=== PATIENT | female | born 1990 | race African-American/Black ===

== ENCOUNTER 2016-07-18 07:59 | Emergency (ER) | payer SELFPAY ==
[~2016-07-18] VITALS: Ht 170.2 cm; Wt 112.0 kg
[~2016-07-18 07:59] MED LIST: HYDR-971 PO; SULF1TAB24 PO
[2016-07-18 08:01] VITALS: BP 134/71
[2016-07-18] MEDS ORDERED: AMOX875T PO (08:35)
[2016-07-18] MEDS ORDERED: TOBR5DRO6 OD (08:35)
--- NOTE | 2016-07-18 08:35 | PHYS DOC ---
Past Medical History Past Medical History: No Pertinent History Past Surgical History: Tonsillectomy Alcohol Use: None Drug Use: None Adult General Chief Complaint Chief Complaint: EYE PROBLEMS HPI HPI Patient is a 26 year old female who presents with pinkeye to bilateral eyes for 4 days as well as sore throat since yesterday. Patient denies any fever coughing or congestion. Her voice is hoarse. Review of Systems Review of Systems Constitutional: See history of present illness Eyes: Pinkeye to bilateral eyes HENT: sore throat [] Respiratory: Denies cough or shortness of breath [] Cardiovascular: No additional information not addressed in HPI [] GI: Denies abdominal pain, nausea, vomiting, bloody stools or diarrhea [] : Denies dysuria or hematuria [] Musculoskeletal: Denies back pain or joint pain [] Integument: Denies rash or skin lesions [] Neurologic: Denies headache, focal weakness or sensory changes [] Endocrine: Denies polyuria or polydipsia [] Allergies Allergies Allergies Coded Allergies Type Severity Reaction Last Updated Verified No Known Drug Allergies 06/18/15 No Physical Exam Physical Exam Constitutional: Well developed, well nourished, no acute distress, non-toxic appearance. [] HENT: Normocephalic, atraumatic, bilateral external ears normal, oropharynx moist, no oral exudates, nose normal. [] Posterior with mild petechia, no exudate. Eyes: PERRLA, EOMI, bilateral conjunctiva mildly injected left worse than right , left eyelid has small amount of dry yellow drainage Neck: Normal range of motion, no tenderness, supple, no stridor. [] Cardiovascular:Heart rate regular rhythm, no murmur [] Lungs & Thorax: Bilateral breath sounds clear to auscultation [] Abdomen: Bowel sounds normal, soft, no tenderness, no masses, no pulsatile masses. [] Skin: Warm, dry, no erythema, no rash. [] Back: No tenderness, no CVA tenderness. [] Extremities: No tenderness, no cyanosis, no clubbing, ROM intact, no edema. [] Neurologic: Alert and oriented X 3, normal motor function, normal sensory function, no focal deficits noted. [] Psychologic: Affect normal, judgement normal, mood normal. [] Current Patient Data Vital Signs Vital Signs Date Time Temp Pulse Resp B/P Pulse Ox O2 Delivery O2 Flow Rate FiO2 2/12/17 08:01 98.6 76 18 97 Room Air 98.6 EKG EKG [] Radiology/Procedures Radiology/Procedures [] Course & Med Decision Making Course & Med Decision Making Pertinent Labs and Imaging studies reviewed. (See chart for details) Patient is in the ED with pink eye and sore throat. Positive rapid strep. Discharged with Tobramycin eyedrops and amoxicillin. Importance of good hand hygiene emphasized. Tylenol /Motrin for pain or fever. Saltwater gargles also recommended for sore throat. Follow-up with PCP in 1-2 weeks. Dragon Disclaimer Dragon Disclaimer This electronic medical record was generated, in whole or in part, using a voice recognition dictation system. Departure Departure Impression: Primary Impression: Acute bacterial conjunctivitis of both eyes Additional Impression: Acute streptococcal pharyngitis Disposition: HOME, SELF-CARE Condition: STABLE Referrals: NO PCP (PCP) Follow-up with your own doctor in one week Patient Instructions: Bacterial Conjunctivitis, [id number]-sc-[id number], Strep Throat Additional Instructions: You were seen for bacterial conjunctivitis both eyes and strep infection. Keep your hands very clean. You can wash your eyes with none irritant soap twice a day and as needed. Ensure you complete your antibiotics. Follow-up with your own primary care doctor in 1-2 weeks. Return to the emergency room if symptoms continue. Scripts Amoxicillin 875 Mg Tablet1 Tab PO BID #20 TAB Prov:MARYELLEN DE LA ROSA APRN 07/18/16 Tobramycin 5 Ml Drops1 Drop OD Q4HRS W/A #5 ML for seven days Prov:MARYELLEN DE LA ROSA APRN 07/18/16 Problem Qualifiers MARYELLEN DE LA ROSA APRN Jul 18, 2016 08:35
== END 2016-07-18 08:49 | disposition home or self-care (01) ==
LOC: ER 07:59
DX: J02.0 Streptococcal pharyngitis (principal); H10.89 Other conjunctivitis; B99.9 Unspecified infectious disease; Z90.89 Acquired absence of other organs
CPT/HCPCS: 99283

== ENCOUNTER 2019-04-10 07:35 | Day surgery (SDC) | payer OTHER ==
[~2019-04-10] VITALS: Ht 170.2 cm; Wt 105.5 kg
[~2019-04-10 07:35] MED LIST changes: +AMOX875T PO; +BUPIVACAINE-EPI 0.5%-1:200000 MPF 30 ML VIAL. INJ ONE; +HEPARIN 1,000 UNIT in IV NORMAL SALINE 1,000 ML for SURG PERIOP IRR ONE; +HYDR-3164 PO; -HYDR-971 PO; +HYDROmorphone 2 MG/ML VIAL IV PRN; +IV RINGERS,LACTATED 1000ML 1,000 ML IV SCH; +LIDOCAINE 1% PF 2 ML VIAL. ID PRN; +MORPHINE SULFATE 2 MG/ML VIAL. IV PRN; +ONDANSETRON PF 4 MG/2 ML VIAL. IV PRN; +PROCHLORPERAZINE 10 MG/2 ML VIAL. IV PRN; +TOBR5DRO6 OD; +TRAM50TA PO; +fentaNYL PF VIAL 100 MCG/2 ML VIAL IV PRN
[2019-04-10] MEDS ORDERED: TRAM50TA PO (08:16)
[2019-04-10] MEDS ORDERED: BISACODYL 10 MG SUPP.RECT. ONE (08:17)
[2019-04-10] MEDS ORDERED: IOHEXOL 300 MG/ML 50 ML VIAL. ONE (08:17)
[2019-04-10] MEDS ORDERED: SURGICEL HEMOSTAT 4X8 EACH. ONE (08:17)
[2019-04-10] MEDS ORDERED: NEOSTIGMINE METHYLSULFATE 5 MG/5 ML SYRINGE. ONE (08:30)
[2019-04-10] MEDS ORDERED: fentaNYL PF VIAL 100 MCG/2 ML VIAL ONE ×2 (08:30→11:11)
[2019-04-10] MEDS ORDERED: ROCURONIUM 50 MG/5 ML VIAL. ONE (08:30)
[2019-04-10] MEDS ORDERED: SEVOFLURANE 61 TO 120 MINUTES. IH ONE (08:30)
[2019-04-10] MEDS ORDERED: ONDANSETRON PF 4 MG/2 ML VIAL. ONE (08:31)
[2019-04-10] MEDS ORDERED: LIDOCAINE 2% PF 5 ML VIAL. ONE (08:31)
[2019-04-10] MEDS ORDERED: MIDAZOLAM HCL/PF 2 MG/2 ML VIAL. ONE (08:31)
[2019-04-10] MEDS ORDERED: DEXAMETHASONE SOD PHOS 4 MG/ML VIAL ONE (08:31)
[2019-04-10] MEDS ORDERED: KETOROLAC 30 MG/ML VIAL. ONE (08:31)
[2019-04-10] MEDS ORDERED: PROPOFOL 20 ML IV ONE (08:31)
[2019-04-10] MEDS ORDERED: GLYCOPYRROLATE 1 MG/5 ML VIAL. ONE (08:31)
[2019-04-10] MEDS ORDERED: ceFAZolin 2GM PREMIX 2 GM/50 ML BAG IV ONE (09:00)
--- NOTE | 2019-04-10 09:14 | PDOC ---
SURGICAL PROGRESS NOTE Subjective Pre-Op Note 29 yo F with calculous cholecystitis TO OR for laparoscopic versus open cholecystectomy with cholangiogram R/R/B/A d/w pt and pt's family. Risks, including, but not limited to: bleeding, infection, damage to surrounding structures, risk of anesthesia, risk of open, risk of . They appear to understand, their questions are answered and they elect to proceed. Office note H&P reviewed and unchanged. Vital Signs Vital Signs Date Time Temp Pulse Resp B/P (MAP) Pulse Ox O2 Delivery O2 Flow Rate FiO2 04/10/19 08:13 97.8 75 18 120/60 98 Room Air 97.8 Labs Laboratory Tests Test 04/10/19 07:53 Bedside Urine HCG, Qualitative Hcg negative (Negative) Laboratory Tests Test 04/10/19 07:53 Bedside Urine HCG, Qualitative Hcg negative (Negative) RENETTA AGUIRRE MD Apr 10, 2019 09:14
--- NOTE | 2019-04-10 09:26 | NUR ---
0.5cc's of icg given iv from [place], [facility] notified prior to injection
[2019-04-10] MEDS ORDERED: INDOCYANINE GREEN IVP ONE (09:27)
[2019-04-10] MEDS ORDERED: TOTAL VOLUME IVP ONE (09:27)
[2019-04-10] MEDS ORDERED: PHENYLEPHRINE in 0.9% NACL PF 1 MG/10 ML SYRINGE. IV ONE (09:48)
--- NOTE | 2019-04-10 10:32 | RAD ---
EXAM: INTRAOPERATIVE CHOLANGIOGRAM. HISTORY: Intraoperative cholangiogram with cholecystectomy. COMPARISON: None. FINDINGS: One fluoroscopic image is obtained intraoperatively during injection of the cystic duct remnant after cholecystectomy. There are no filling defects to suggest retained stones. The common duct is not dilated. Fluoroscopy time 16 seconds. IMPRESSION: 1. No evidence of retained stones. Electronically signed by: Layo Nair MD (04/10/2019 10:29 AM) [facility]
[2019-04-10] MEDS ORDERED: IV NORMAL SALINE 1000ML BAG 1,000 ML IV SCH (10:40)
[2019-04-10] MEDS ORDERED: NALOXONE 0.4 MG/ML VIAL. IV PRN (10:45)
[2019-04-10] MEDS ORDERED: ONDANSETRON PF 4 MG/2 ML VIAL. IV PRN (10:45)
[2019-04-10] MEDS ORDERED: HYDROcodone/APAP 5/325MG 1 TAB TABLET PO PRN (10:45)
[2019-04-10] MEDS ORDERED: DEXTROSE 50% 25 GM / 50ML DISP.SYRIN. IV PRN (10:45)
[2019-04-10] MEDS ORDERED: 0.9 % SODIUM CHLORIDE 10 ML DISP.SYRIN. IV PRN (10:45)
--- NOTE | 2019-04-10 10:54 | PDOC4 ---
OPERATIVE NOTE Date: Date: Apr 10, 2019 Pre-Op Diagnosis: Calculous cholecystitis Post-Op Diagnosis: same Procedure Performed: laparoscopic cholecystectomy with cholangiogram Surgeon: Pk Aguirre Anesthesia Type: GETA plus local Blood Loss: 50 Specimans Obtained: gallbladder Findings: chronic adhesions to gallbladder, morbid obesity, large gallstone, normal cholangiogram Complications: none Operative Note: After obtaining informed consent, patient was taken to OR, induced under GETA and prepped in the usual fashion. 5 mm port placed umbilical and RUQ, 12 port placed epigastric, all under laparoscopic guidance. Abdominal cavity was explored with above findings. Gallbladder adhesions taken down sharply. ICG was used to aid anatomy identification. Gallbladder taken down in dome down fashion. Cystic artery ligated with clips. Cholangiogram obtained via cystic duct, which was normal. Cystic duct ligated with clips and hemolok. Gallbladder resected, placed in bag, delivered and sent to pathology for evaluation. Copious irrigation. No evidence of bleeding or other pathology. Ports removed without bleeding. Fascia repaired with 0 vicryl. Skin repaired with 4 0 monocryl. Dressing placed. Patient tolerated procedure well and sent to PACU in stable condition. All counts correct. Wound class is 2. RENETTA AGUIRRE MD Apr 10, 2019 10:54
[2019-04-10] MEDS ORDERED: HYDR-3164 PO (11:24)
[2019-04-10] MEDS ORDERED: DOCU-109 PO (11:25)
[2019-04-10] MEDS ORDERED: HYDROcodone/APAP 5/325MG 1 TAB TABLET PO ONE (11:30)
[2019-04-10 11:50] VITALS: BP 131/82
[2019-04-10] MEDS ORDERED: DOCUSATE SODIUM 100 MG CAPSULE. PO SCH (21:00)
--- NOTE | 2019-04-11 23:06 | PATHOLOGY ---
[facility] Accession Number: [id number] . 01 Material submitted: . gallbladder - GALLBLADDER AND CONTENTS . 01 Clinical history: . Gallstones. . 02 Diagnosis: "Gallbladder and contents", cholecystectomy: - Mildly acute on chronic cholecystitis. - Cholelithiasis. (CLW/db; 04/11/2019) LBQ 04/11/2019 1616 Local . 02 Electronically signed: . Richa Benavides MD, Pathologist NPI- [id number] . 01 Gross description: . Received in formalin labeled "Bri, Cassia, gallbladder and contents" is an intact cholecystectomy specimen measuring 6.5 x 3.7 x 2.3 cm. The serosa is pink-king and smooth and the specimen is opened to reveal green-red focally hemorrhagic mucosa without polyps or masses. The average wall thickness is 0.3 cm. One green ovoid calculus is present measuring 2.6 cm in greatest dimension. Basketball Assembler sections of the fundus and body and the cystic duct margin are submitted in A1. ([facility] [place]; 04/10/2019) SY/[facility] 04/10/2019 1720 Local . 02 Pathologist provided ICD-10: K80.12 . 02 CPT . 187205 Specimen Comment: A courtesy copy of this report has been sent to [phone] Specimen Comment: Report sent to Performed at: 01 [facility] [address] [facility] [address], [place] [id number] MD Anirudh Stewart MD Phone: [phone] Performed at: 02 [facility] [address] [place], [place] [id number] MD Benedicto Rivas MD Phone: [phone]
== END 2019-04-10 12:17 | disposition home or self-care (01) ==
LOC: SURG 07:35
PROVIDERS: ATTEND Surgery
DX: K80.12 Calculus of gallbladder with acute and chronic cholecystitis without obstruction (principal); F17.210 Nicotine dependence, cigarettes, uncomplicated; D64.9 Anemia, unspecified; E66.01 Morbid (severe) obesity due to excess calories; Z68.36 Body mass index [BMI] 36.0-36.9, adult; Z72.89 Other problems related to lifestyle
CPT/HCPCS: 47563; 74300; 81025; 88304; A7015; J0696; J1100; J1644; J1885; J2001; J2250; J2370; J2405; J2704; J2710; J3010; J3490; J7030; J7120; Q9967

== ENCOUNTER 2019-12-21 11:16 | Emergency (ER) | payer OTHER ==
[~2019-12-21] VITALS: Ht 170.2 cm; Wt 113.0 kg
[~2019-12-21 11:16] MED LIST changes: -BUPIVACAINE-EPI 0.5%-1:200000 MPF 30 ML VIAL. INJ ONE; +DOCU-109 PO; -HEPARIN 1,000 UNIT in IV NORMAL SALINE 1,000 ML for SURG PERIOP IRR ONE; -HYDROmorphone 2 MG/ML VIAL IV PRN; -IV RINGERS,LACTATED 1000ML 1,000 ML IV SCH; -LIDOCAINE 1% PF 2 ML VIAL. ID PRN; -MORPHINE SULFATE 2 MG/ML VIAL. IV PRN; -ONDANSETRON PF 4 MG/2 ML VIAL. IV PRN; -PROCHLORPERAZINE 10 MG/2 ML VIAL. IV PRN; -fentaNYL PF VIAL 100 MCG/2 ML VIAL IV PRN
[2019-12-21 11:34] VITALS: BP 140/84
[2019-12-21] MEDS ORDERED: AZIT250T6 PO (11:49)
[2019-12-21] MEDS ORDERED: METH4TAB2 PO (11:49)
[2019-12-21] MEDS ORDERED: CETI10TA24 PO (11:49)
[2019-12-21] MEDS ORDERED: HYDR-3164 PO (11:49)
--- NOTE | 2019-12-21 11:50 | PHYS DOC ---
Past Medical History Past Medical History: No Pertinent History Past Surgical History: Tonsillectomy Smoking Status: Current Every Day Smoker Alcohol Use: Occasionally Drug Use: None General Adult EDM: Chief Complaint: EARACHE/EAR PAIN HPI: HPI: Patient is a 29 year old Female who presents with 3 days of a runny congested nose and left ear pain. Patient also complains of a dry cough. She does have a history of smoker but denies any other history and takes no medications. She has not taken any medications for her symptoms. Denies anything making it worse or better. She rates her pain a 10 out of 10 and states left ear pain radiates into the left jaw. She states is a throbbing pain. States her hearing is muffled in the left ear. Patient does work at [employer]. She denies fever, nausea, vomiting, diarrhea, abdominal pain, chest pain, shortness of air, dizziness, headache, throat pain, dizziness, vision changes, numbness or tingling. Review of Systems: Review of Systems: Constitutional: Denies fever or chills. [] Eyes: Denies change in visual acuity. [] HENT: Rhinorrhea nasal congestion or denies sore throat. Left ear pain [] Respiratory: Dry cough or denies shortness of breath. [] Cardiovascular: Denies chest pain or edema. [] GI: Denies abdominal pain, nausea, vomiting, bloody stools or diarrhea. [] : Denies dysuria. [] Musculoskeletal: Denies back pain or joint pain. [] Integument: Denies rash. [] Neurologic: Denies headache, focal weakness or sensory changes. [] Endocrine: Denies polyuria or polydipsia. [] Lymphatic: Denies swollen glands. [] Psychiatric: Denies depression or anxiety. [] Heart Score: Risk Factors: Risk Factors: DM, Current or recent (<one month) smoker, HTN, HLP, family history of CAD, obesity. Risk Scores: Score 0 - 3: 2.5% MACE over next 6 weeks - Discharge Home Score 4 - 6: 20.3% MACE over next 6 weeks - Admit for Clinical Observation Score 7 - 10: 72.7% MACE over next 6 weeks - Early Invasive Strategies Current Medications: Current Medications Medications (Trade) Dose Ordered Sig/Abi Start Time Stop Time Status Last Admin Dose Admin Acetaminophen/ Hydrocodone Bitart (Lortab 5/325) 1 tab 1X ONCE 12/21/19 12:15 12/21/19 12:16 Allergies: Allergies: Allergies Coded Allergies Type Severity Reaction Last Updated Verified No Known Drug Allergies 06/18/15 No Physical Exam: PE: Constitutional: Well developed, well nourished, no acute distress, non-toxic appearance. [] HENT: Normocephalic, atraumatic, bilateral external ears normal, oropharynx moist, no oral exudates, nose normal. Left ear tympanic and ear canal are reddened and swollen. Tender with examination. [] Eyes: PERRLA, EOMI, conjunctiva normal, no discharge. [] Neck: Normal range of motion, no tenderness, supple, no stridor. [] Cardiovascular:Heart rate regular rhythm, no murmur [] Lungs & Thorax: Bilateral breath sounds clear to auscultation [] Abdomen: Bowel sounds normal, soft, no tenderness, no masses, no pulsatile masses. [] Skin: Warm, dry, no erythema, no rash. [] Back: No tenderness, no CVA tenderness. [] Extremities: No tenderness, no cyanosis, no clubbing, ROM intact, no edema. [] Neurologic: Alert and oriented X 3, normal motor function, normal sensory function, no focal deficits noted. [] Psychologic: Affect normal, judgement normal, mood normal. [] Current Patient Data: Vital Signs: Vital Signs Date Time Temp Pulse Resp B/P (MAP) Pulse Ox O2 Delivery O2 Flow Rate FiO2 12/21/19 11:34 98.4 98 18 140/84 (102) 99 Room Air 98.4 EKG: EKG: [] Radiology/Procedures: Radiology/Procedures: [] Impression: [facility] [address] [place], [place] [id number] IMAGING REPORT Signed PATIENT: ESTHER ARGUELLOCOUNT: [id number] : 1990 LOCATION: ER AGE: 29 SEX: F EXAM STATUS: REG ER ORD. PHYSICIAN: BRONSON MACIAS APRN REASON: cough, sore throat x3 days PROCEDURE: PORTABLE CHEST 1V PORTABLE CHEST 1V History: Reason: cough, sore throat x3 days / Spl. Instructions: / History: Comparison: None. Findings: No consolidation or pleural effusion. Normal heart size. No pneumothorax. Impression: 1. No acute cardiopulmonary process. Electronically signed by: Bill Schwarz DO (12/21/2019 12:23 PM) [id number] DICTATED and SIGNED BY: BILL SCHWARZ DO DATE: 12/21/19 1223 Course & Med Decision Making: Course & Med Decision Making Pertinent Labs and Imaging studies reviewed. (See chart for details) COVID-19 CRITERIA: The patient was evaluated during the global COVID-19 pandemic, and that diagnosis was suspected/considered upon their initial presentation. Their evaluation, treatment and testing was consistent with current guidelines for patients who present with complaints or symptoms that may be related to COVID-19. Left ear canal is reddened and tender with examination. Left ear canal swollen. Left eardrum is reddened. Tympanic is intact. Lungs are clear to auscultation all lobes. Vital signs within normal limits. Afebrile. 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 She is educated that it could take 4 working days for her to get a results. Alert and oriented. Ambulatory with a steady gait. Skin pink warm and dry. Throat is pink without any swelling or exudates. [] Rulaon Disclaimer: Amina Disclaimer: This electronic medical record was generated, in whole or in part, using a voice recognition dictation system. COVID-19 Patient Risks: Age 65 or older: No Sign of co-morbidity: Yes Exp to person + for COVID: No Exp to PUI: No Travel from affected area: No Lower respiratory symptoms: Yes Fever: No Other: No Comments: runny nose Departure Departure Impression: Primary Impression: Person under investigation for COVID-19 Additional Impressions: Cough Rhinorrhea Otitis media Qualified Codes: H66.90 - Otitis media, unspecified, unspecified ear Disposition: 01 HOME, SELF-CARE Condition: STABLE Referrals: NO PCP (PCP) Patient Instructions: Cough, Adult, Otitis Media, Adult Additional Instructions: You have been tested for or diagnosed with COVID-19. It is an infection caused by a new type of coronavirus. COVID-19 will cause cold-like or mild flu symptoms in most. It can cause more severe symptoms like problems breathing in some. There is no treatment for COVID-19. The body will clear the infection over time. Self-care will help to ease discomfort. Steps to Take: Self-Care Rest as needed. Healthy habits may help you feel better. Steps include: Choose healthy foods including fruits and vegetables. Drink water throughout the day. Get plenty of sleep each night. If you smoke, try to quit. It may ease breathing. Avoid alcohol. Keep Others Healthy The virus can spread to others. Droplets are released every time you sneeze or cough. The droplets can get into the mouth, nose, or eyes of people near you and lead to infection. To lower the chances of spreading COVID-19 to others: Stay at home until your doctor has said it is safe to leave. If you tested positive this will mean staying isolated until both of the following are true: At least 7 days have passed since the start of illness. You are free of fever for at least 72 hours without the use of medicine. During this time: - Avoid public areas, events, or transportation. Do not return to work or school until your doctor has said it is safe to do so. - Call ahead if you need to go to a medical center. Let them know you may have COVID-19. It will help them guide you where to go. They may also ask you to wear a facemask when you come to the office. - If you call for emergency medical services, let them know you may have COVID- 19. While at home: - Try to avoid close contact with others. Stay about 6 feet away. - If possible, spend most of your time in a separate room from others. - Use a face mask if you will be in close contact with others such as sharing a room or vehicle. - Have someone wipe down common surfaces in the home. Use household spar cap beveler every day on areas like doorknobs, counters, or sinks. - Cough or sneeze into a tissue. Throw the tissue away right after use. If a tissue is not available, cough or sneeze into your elbow. - Wash your hands often. Wash them after sneezing or coughing. Use soap and water and wash for at least 20 seconds. Alcohol based hand reed cleaner can be used if soap and water is not available. - Do not prepare food for others. Avoid sharing personal items like forks, spoons, or toothbrushes. - Avoid close contact with pets while you are sick. There is no evidence of the virus passing to pets. This is a safety step until more is known about this virus. Isolation can be frustrating. Social interaction can help. Keep in touch with friends and family through phone and tech options. You can still interact with others in your home, just keep a safe distance of about 6 feet. Follow-up: Your doctors office will check in with you to see if there are any changes in your health. You may be asked to keep track of symptoms to share with them. They will also let you know when you are clear to be in public again. Problems to Look Out For: Contact your doctor if your recovery is not going as you expect. Get emergency care if you have problems such as: - Trouble breathing - Nonstop chest pain or pressure - Changes in awareness, confusion, or problems waking - Lips or face have bluish color - Worsening of symptoms If you think you have an emergency, call for emergency medical services right away. As taken from [facility] Cetirizine Hcl (ZYRTEC) 10 Mg Tablet 1 TAB PO DAILY, #30 TAB 5 Refills Prov: BRONSON MACIAS APRN 12/21/19 Hydrocodone/Apap 5-325 (NORCO 5-325 TABLET) 1 Each Tablet 1 TAB PO PRN Q6HRS PRN for PAIN, #8 TAB 0 Refills Prov: BRONSON MACIAS APRN 12/21/19 Azithromycin (AZITHROMYCIN TABLET) 250 Mg Tablet 1 PKG PO UD for 5 Days, #6 TAB 0 Refills 2 the first day followed by 1 for days 2-5 Prov: BRONSNO MACIAS APRN 12/21/19 Methylprednisolone (MEDROL) 4 Mg Tab.ds.pk 1 PKG PO UD, #1 PKG Prov: BRONSON MACIAS APRN 12/21/19 Justicifation of Admission Dx: Justifications for Admission: Justification of Admission Dx: N/A BRONSON MACIAS APRN Dec 21, 2019 11:50
[2019-12-21] MEDS ORDERED: HYDROcodone/APAP 5/325MG 1 TAB TABLET PO ONE (12:15)
--- NOTE | 2019-12-21 12:27 | RAD ---
PORTABLE CHEST 1V History: Reason: cough, sore throat x3 days / Spl. Instructions: / History: Comparison: None. Findings: No consolidation or pleural effusion. Normal heart size. No pneumothorax. Impression: 1. No acute cardiopulmonary process. Electronically signed by: Bill Keith DO (12/21/2019 12:23 PM) [id number]
== END 2019-12-21 12:34 | disposition home or self-care (01) ==
LOC: ER 11:16
DX: Z20.828 Contact with and (suspected) exposure to other viral communicable diseases (principal); H66.92 Otitis media, unspecified, left ear; R09.89 Other specified symptoms and signs involving the circulatory and respiratory systems; J34.89 Other specified disorders of nose and nasal sinuses; F17.200 Nicotine dependence, unspecified, uncomplicated
CPT/HCPCS: 71045; 99284; U0003

== ENCOUNTER 2020-02-08 11:53 | Emergency (ER) | payer SELFPAY ==
[~2020-02-08] VITALS: Ht 170.2 cm; Wt 104.5 kg
[~2020-02-08 11:53] MED LIST changes: +AZIT250T6 PO; +CETI10TA74 PO; +METH4TAB2 PO
[2020-02-08 12:07] VITALS: BP 174/96
--- NOTE | 2020-02-08 12:13 | PHYS DOC ---
Past Medical History Past Medical History: No Pertinent History (BRONSON MACIAS EHS ENGINEER) Past Surgical History: Tonsillectomy (BRONSON MACIAS APRN) Smoking Status: Current Every Day Smoker Alcohol Use: Occasionally Drug Use: None (BRONSON MACIAS APRN) General Adult EDM: Chief Complaint: COUGH HPI: HPI: Patient is a 30 year old female who presents with works for [employer] and had a positive COVID exposure to another employee there 8 days ago. She states 2 days ago she began coughing. She states her employer told her to wait 8 days before getting tested. She is a smoker but denies any other past medical history. She also complains of a right earache. She states about a month or 2 ago she had right otitis externa. Patient again appears to have right otitis externa as the ear canal is swollen and very tender. Right tympanic is intact and white. No swimming or getting water stuck in her ear. Patient denies nausea, vomiting, abdominal pain, dizziness, headache, vision changes, numbness or tingling, chest pain, shortness of breath, fatigue, weakness, fever, chills, focal weakness, diarrhea. She denies any pain at this time. Patient has not taken any medication for her symptoms. She states nothing makes it worse or better. (BRONSON MACIAS EHS ENGINEER) Review of Systems: Review of Systems: Constitutional: Denies fever or chills. [] Eyes: Denies change in visual acuity. [] HENT: Denies nasal congestion or sore throat. Right ear pain. [] Respiratory: cough or denies shortness of breath. [] Cardiovascular: Denies chest pain or edema. [] GI: Denies abdominal pain, nausea, vomiting, bloody stools or diarrhea. [] : Denies dysuria. [] Musculoskeletal: Denies back pain or joint pain. [] Integument: Denies rash. [] Neurologic: Denies headache, focal weakness or sensory changes. [] Endocrine: Denies polyuria or polydipsia. [] Lymphatic: Denies swollen glands. [] Psychiatric: Denies depression or anxiety. [] (BRONSON MACIAS APRN) Heart Score: Risk Factors: Risk Factors: DM, Current or recent (<one month) smoker, HTN, HLP, family history of CAD, obesity. Risk Scores: Score 0 - 3: 2.5% MACE over next 6 weeks - Discharge Home Score 4 - 6: 20.3% MACE over next 6 weeks - Admit for Clinical Observation Score 7 - 10: 72.7% MACE over next 6 weeks - Early Invasive Strategies (BRONSON MACIAS APRN) Allergies: Allergies: Allergies Coded Allergies Type Severity Reaction Last Updated Verified No Known Drug Allergies 06/18/15 No (BRONSON MACIAS APRN) Physical Exam: PE: Constitutional: Well developed, well nourished, no acute distress, non-toxic appearance. [] HENT: Normocephalic, atraumatic, bilateral external ears normal, oropharynx moist, no oral exudates, nose normal. Right otitis externa with drainage. [] Eyes: PERRLA, EOMI, conjunctiva normal, no discharge. [] Neck: Normal range of motion, no tenderness, supple, no stridor. [] Cardiovascular:Heart rate regular rhythm, no murmur [] Lungs & Thorax: Bilateral breath sounds clear to auscultation [] Abdomen: Bowel sounds normal, soft, no tenderness, no masses, no pulsatile masses. [] Skin: Warm, dry, no erythema, no rash. [] Back: No tenderness, no CVA tenderness. [] Extremities: No tenderness, no cyanosis, no clubbing, ROM intact, no edema. [] Neurologic: Alert and oriented X 3, normal motor function, normal sensory function, no focal deficits noted. [] Psychologic: Affect normal, judgement normal, mood normal. [] (BRONSON MACIAS APRN) EKG: EKG: [] (BRONSON MACIAS APRN) Radiology/Procedures: Radiology/Procedures: [] Impression: [facility] [address] [place] [address] IMAGING REPORT Signed PATIENT: ESTHER ARGUELLO MACCOUNT: [id number] : 1990 LOCATION: ER AGE: 30 SEX: F EXAM STATUS: REG ER ORD. PHYSICIAN: BRONSON MACIAS APRN REASON: cough, covid exposure PROCEDURE: PORTABLE CHEST 1V PORTABLE CHEST 1V History: Reason: cough, covid exposure / Spl. Instructions: / History: Comparison: December 21, 2019 Findings: No consolidation or pleural effusion. Normal heart size. No pneumothorax. Impression: 1. No acute cardiopulmonary process. Electronically signed by: Bill Keith DO (02/08/2020 12:52 PM) [id number] DICTATED and SIGNED BY: BILL KEITH DO DATE: 02/08/20 1252 (BRONSON MACIAS APRN) Course & Med Decision Making: Course & Med Decision Making Pertinent Labs and Imaging studies reviewed. (See chart for details) COVID-19 CRITERIA: The patient was evaluated during the global COVID-19 pandemic, and that diagnosis was suspected/considered upon their initial presentation. Their evaluation, treatment and testing was consistent with current guidelines for patients who present with complaints or symptoms that may be related to COVID-19. ] See HPI. Lungs are clear to auscultation all lobes. Speaks in full clear sentences. Alert and oriented x4. Ambulatory with a steady gait. Skin pink warm and dry. Right ear canal is swollen, tender and has purulent drainage. Tympanic is intact. Denies nasal congestion or sore throat. Abdomen soft and nontender. Vital signs within normal limits. Patient is given a COVID test and a chest x-ray in the ED. Chest x-ray shows no acute findings. We will send the patient home with a Medrol Dosepak and azithromycin. Patient is educated to continue quarantining. (BRONSON MACIAS APRN) Amina Disclaimer: Amina Disclaimer: This electronic medical record was generated, in whole or in part, using a voice recognition dictation system. (BRONSON MACIAS APRN) COVID-19 Patient Risks: Age 65 or older: No Sign of co-morbidity: Yes Exp to person + for COVID: Yes Exp to PUI: No Travel from affected area: No Lower respiratory symptoms: Yes Fever: No Other: No (BRONSON MACIAS APRN) PPE Use: Full PPE with N95 mask or PAPR: Yes (BRONSON MACIAS APRN) Departure Departure Impression: Primary Impression: Cough Additional Impressions: Exposure to COVID-19 virus Otitis externa Qualified Codes: H60.502 - Unspecified acute noninfective otitis externa, left ear Disposition: 01 HOME, SELF-CARE Condition: STABLE Referrals: NO PCP (PCP) Patient Instructions: Cough, Adult, Otitis Externa Additional Instructions: Continue quarantining. You will be called in 24 to 48 hours with the COVID results. Take medications as prescribed. Try to stop smoking. Follow-up with a primary care doctor if needed. You have been tested for or diagnosed with COVID-19. It is an infection caused by a new type of coronavirus. COVID-19 will cause cold-like or mild flu symptoms in most. It can cause more severe symptoms like problems breathing in some. There is no treatment for COVID-19. The body will clear the infection over time. Self-care will help to ease discomfort. Steps to Take: Self-Care Rest as needed. Healthy habits may help you feel better. Steps include: Choose healthy foods including fruits and vegetables. Drink water throughout the day. Get plenty of sleep each night. If you smoke, try to quit. It may ease breathing. Avoid alcohol. Keep Others Healthy The virus can spread to others. Droplets are released every time you sneeze or cough. The droplets can get into the mouth, nose, or eyes of people near you and lead to infection. To lower the chances of spreading COVID-19 to others: Stay at home until your doctor has said it is safe to leave. If you tested positive this will mean staying isolated until both of the following are true: At least 7 days have passed since the start of illness. You are free of fever for at least 72 hours without the use of medicine. During this time: - Avoid public areas, events, or transportation. Do not return to work or school until your doctor has said it is safe to do so. - Call ahead if you need to go to a medical center. Let them know you may have COVID-19. It will help them guide you where to go. They may also ask you to wear a facemask when you come to the office. - If you call for emergency medical services, let them know you may have COVID- 19. While at home: - Try to avoid close contact with others. Stay about 6 feet away. - If possible, spend most of your time in a separate room from others. - Use a face mask if you will be in close contact with others such as sharing a room or vehicle. - Have someone wipe down common surfaces in the home. Use household squaring machine operator every day on areas like doorknobs, counters, or sinks. - Cough or sneeze into a tissue. Throw the tissue away right after use. If a tissue is not available, cough or sneeze into your elbow. - Wash your hands often. Wash them after sneezing or coughing. Use soap and water and wash for at least 20 seconds. Alcohol based hand housecleaner floor can be used if soap and water is not available. - Do not prepare food for others. Avoid sharing personal items like forks, spoons, or toothbrushes. - Avoid close contact with pets while you are sick. There is no evidence of the virus passing to pets. This is a safety step until more is known about this virus. Isolation can be frustrating. Social interaction can help. Keep in touch with friends and family through phone and tech options. You can still interact with others in your home, just keep a safe distance of about 6 feet. Follow-up: Your doctors office will check in with you to see if there are any changes in your health. You may be asked to keep track of symptoms to share with them. They will also let you know when you are clear to be in public again. Problems to Look Out For: Contact your doctor if your recovery is not going as you expect. Get emergency care if you have problems such as: - Trouble breathing - Nonstop chest pain or pressure - Changes in awareness, confusion, or problems waking - Lips or face have bluish color - Worsening of symptoms If you think you have an emergency, call for emergency medical services right away. As taken from [facility] Azithromycin (AZITHROMYCIN TABLET) 250 Mg Tablet 1 PKG PO UD for 5 Days, #6 TAB 0 Refills 2 the first day followed by 1 for days 2-5 Prov: BRONSON MACIAS APRN 02/08/20 Methylprednisolone (MEDROL) 4 Mg Tab.ds.pk 1 PKG PO UD, #1 PKG Prov: BRONSON MACIAS APRN 02/08/20 Justicifation of Admission Dx: Justifications for Admission: Justification of Admission Dx: N/A (BRONSON MACIAS APRN) Attending Signature Attending Signature I have reviewed the PA/LOSS PREVENTION AND SAFETY MANAGER's note and plan of care. I was available for consultation as needed during the patient's visit in the emergency department. I agree with the clinical impression, plan, and disposition. (ANNABEL WEEKS DO) BRONSON MACIAS APRN Feb 08, 2020 12:13 ANNABEL WEEKS DO Feb 09, 2020 06:55
[2020-02-08] MEDS ORDERED: IBUPROFEN 200 MG TABLET. PO ONE (12:30)
--- NOTE | 2020-02-08 12:55 | RAD ---
PORTABLE CHEST 1V History: Reason: cough, covid exposure / Spl. Instructions: / History: Comparison: December 21, 2019 Findings: No consolidation or pleural effusion. Normal heart size. No pneumothorax. Impression: 1. No acute cardiopulmonary process. Electronically signed by: Bill Keith DO (02/08/2020 12:52 PM) [id number]
[2020-02-08] MEDS ORDERED: AZIT250T6 PO (13:05)
[2020-02-08] MEDS ORDERED: METH4TAB2 PO (13:05)
--- NOTE | 2020-02-12 09:32 | NUR ---
IP: Notified pt of negative COVID results. Pt verbalized understanding.
== END 2020-02-08 13:12 | disposition home or self-care (01) ==
LOC: ER 11:53
DX: H60.8X1 Other otitis externa, right ear (principal); Z20.828 Contact with and (suspected) exposure to other viral communicable diseases; R05 Cough; F17.200 Nicotine dependence, unspecified, uncomplicated; Z90.89 Acquired absence of other organs
CPT/HCPCS: 71045; 99284; U0003

== ENCOUNTER 2020-07-15 14:24 | Emergency (ER) | payer OTHER ==
[~2020-07-15] VITALS: Ht 170.2 cm; Wt 123.0 kg
[2020-07-15] MEDS ORDERED: KETOROLAC 30 MG/ML VIAL. IVP ONE (15:30)
--- NOTE | 2020-07-15 15:35 | PHYS DOC ---
Past Medical History Past Medical History: No Pertinent History Past Surgical History: Cholecystectomy, Tonsillectomy Smoking Status: Current Every Day Smoker Alcohol Use: Occasionally Drug Use: None General Adult EDM: Chief Complaint: ABDOMINAL PAIN HPI: HPI: Patient is a 30 year old female who presents with states she was having sexual intercourse last night with her boyfriend and began having pelvic pain during intercourse. She states that it was normal intercourse and was not any rougher than usual. She states that after intercourse was done she noticed some spotting vaginally. She denies any concern for sexually transmitted diseases or abnormal vaginal discharge otherwise. She states now she has continued bilateral lobar pelvic pain that at times is sharp and radiates to her back. She calls it a 8 out of 10. She has not taken any pain medications today. Patient denies any urinary symptoms, nausea, vomiting, diarrhea, chest pain, shortness of air, fever, headache, dizziness. Review of Systems: Review of Systems: Constitutional: Denies fever or chills. [] Eyes: Denies change in visual acuity. [] HENT: Denies nasal congestion or sore throat. [] Respiratory: Denies cough or shortness of breath. [] Cardiovascular: Denies chest pain or edema. [] GI: + Bilateral lower abdominal pain, denies nausea, vomiting, bloody stools or diarrhea. [] : Denies dysuria. + Vaginal spotting [] Musculoskeletal: Denies back pain or joint pain. [] Integument: Denies rash. [] Neurologic: Denies headache, focal weakness or sensory changes. [] Endocrine: Denies polyuria or polydipsia. [] Lymphatic: Denies swollen glands. [] Psychiatric: Denies depression or anxiety. [] Heart Score: Risk Factors: Risk Factors: DM, Current or recent (<one month) smoker, HTN, HLP, family history of CAD, obesity. Risk Scores: Score 0 - 3: 2.5% MACE over next 6 weeks - Discharge Home Score 4 - 6: 20.3% MACE over next 6 weeks - Admit for Clinical Observation Score 7 - 10: 72.7% MACE over next 6 weeks - Early Invasive Strategies Current Medications: Current Medications Medications (Trade) Dose Ordered Sig/Abi Start Time Stop Time Status Last Admin Dose Admin Ketorolac Tromethamine (Toradol 30mg Vial) 30 mg 1X ONCE 07/15/20 15:30 07/15/20 15:31 UNV Allergies: Allergies: Allergies Coded Allergies Type Severity Reaction Last Updated Verified No Known Drug Allergies 06/18/15 No Physical Exam: PE: Constitutional: Well developed, well nourished, no acute distress, non-toxic appearance. [] HENT: Normocephalic, atraumatic, bilateral external ears normal, oropharynx moist, no oral exudates, nose normal. [] Eyes: PERRLA, EOMI, conjunctiva normal, no discharge. [] Neck: Normal range of motion, no tenderness, supple, no stridor. [] Cardiovascular:Heart rate regular rhythm, no murmur [] Lungs & Thorax: Bilateral breath sounds clear to auscultation [] Abdomen: Bowel sounds normal, soft, bilateral lower tenderness, no masses, no pulsatile masses. [] Skin: Warm, dry, no erythema, no rash. [] Back: No tenderness, no CVA tenderness. [] Extremities: No tenderness, no cyanosis, no clubbing, ROM intact, no edema. [] Neurologic: Alert and oriented X 3, normal motor function, normal sensory function, no focal deficits noted. [] Psychologic: Affect normal, judgement normal, mood normal. [] Current Patient Data: Labs: Laboratory Tests Test 07/15/20 15:11 POC Urine HCG, Qualitative Hcg negative (Negative) EKG: EKG: [] Radiology/Procedures: Radiology/Procedures: [] Impression: [facility] [address] [place] [address] IMAGING REPORT Signed PATIENT: ESTHER ARGUELLO MACCOUNT: [id number] : 1990 LOCATION: ER AGE: 30 SEX: F EXAM STATUS: REG ER ORD. PHYSICIAN: BRONSON MACIAS APRN REASON: pain with sex and bleeding, continous pelvic pain since last night PROCEDURE: PELVIS W/TV Exam: Ultrasound pelvis Indication: Pain with bleeding Technique: Real-time grayscale and color Doppler images of the pelvis were obtained by the department field artillery officer. Comparisons: None FINDINGS: Uterus measures 11.0 x 4.6 x 4.0 cm. Endometrium is 7 mm in thickness. Right ovary measures 2.9 x 2.4 x 1.3 cm. Left ovary is not visualized. No free fluid identified in the pelvis. IMPRESSION: Normal sonographic appearance of the uterus and right ovary. Left ovary is not visualized. Electronically signed by: Batool Damon MD (07/15/2020 4:16 PM) [facility] DICTATED and SIGNED BY: BATOOL DAMON MD DATE: 07/15/20 [id number] 0 [facility] [address] [place] [address] IMAGING REPORT Signed PATIENT: ESTHER ARGUELLO MACCOUNT: [id number] : 1990 LOCATION: ER AGE: 30 SEX: F EXAM STATUS: REG ER ORD. PHYSICIAN: BRONSON MACIAS APRN REASON: COULD NOT SEE LEFT OVARY ON US, PELVIC PAIN PROCEDURE: CT PELVIS W/CONTRAST Exam: CT of pelvis with contrast INDICATION: Pelvic pain TECHNIQUE: Sequential axial images through the pelvis obtained following the administration of 75 mL of Omni 300 IV contrast. Sagittal and coronal reformatted images were reconstructed from the axial data and reviewed. Comparisons: Pelvis same day FINDINGS: Visualized portions of the kidneys are unremarkable. No renal or ureteral calculi identified within the [id number]. Bladder is partially distended and appears thin-walled. Uterus is not enlarged. No abnormal adnexal mass. Visualized portions of the large and small bowel are unremarkable. Appendix is normal. No free intra-abdominal air or fluid. No obstruction. Pelvic vasculature is patent. No enlarged pelvic lymph nodes identified. No suspicious osseous lesions or acute fractures. IMPRESSION: No acute process identified in the pelvis Exposure: One or more of the following in the visualized dose reduction techniques were utilized for this examination: 1. Automated exposure control 2. Adjustment of the MA and/or KV according to patient size 3. Use of iterative of reconstructive technique Electronically signed by: Batool Damon MD (07/15/2020 5:32 PM) [facility] DICTATED and SIGNED BY: BATOOL DAMON MD DATE: 07/15/20 [id number] 0 Course & Med Decision Making: Course & Med Decision Making Pertinent Labs and Imaging studies reviewed. (See chart for details) See HPI. Ambulatory with a steady gait. Speaks in full complete sentences. Skin pink warm and dry. Abdomen is soft but tender to bilateral lower abdomen. No CVA tenderness. Afebrile. Patient states that I can go ahead and treat her for STD prophylactically. Ultrasound shows no acute findings. CT shows no acute findings. Urinalysis is not infected. Blood work is unremarkable. There is no CMT. Pelvic Exam: Mopper present Abdomen: Right and left lower External Genitalia: Normal Skin Speculum: Normal vaginal mucosa, white/yellow cervical discharge Bimanual: No adnexal masses or tenderness, No CMT [] Dragon Disclaimer: Dragon Disclaimer: This electronic medical record was generated, in whole or in part, using a voice recognition dictation system. Departure Departure Impression: Primary Impression: Pelvic pain Additional Impressions: Dyspareunia Vaginal spotting Disposition: 01 DC HOME SELF CARE/HOMELESS Condition: STABLE Referrals: NO PCP (PCP) CHIP ANSARI Jr, MD Patient Instructions: Dyspareunia, Pelvic Pain, Female Additional Instructions: Follow-up with a PRESS SECRETARY. I have referred you to one if you do not have one. Remember you will be called in 48 hours if your chlamydia or gonorrhea comes back positive only. BRONSON MACIAS APRN Jul 15, 2020 15:35
[2020-07-15 15:59] LABS: BILIRUBIN,URINE NEGATIVE (NEG); CLARITY,URINE CLEAR; COLOR,URINE YELLOW; NITRITE,URINE NEGATIVE (NEG); PH,URINE 5.5 (<5.0-8.0); PROTEIN,URINE NEGATIVE (NEG-TRACE); UROBILINOGEN,URINE 0.2 mg/dL (0.2 mg/dL)
--- NOTE | 2020-07-15 16:18 | RAD ---
Exam: Ultrasound pelvis Indication: Pain with bleeding Technique: Real-time grayscale and color Doppler images of the pelvis were obtained by the department slide fasteners inspector. Comparisons: None FINDINGS: Uterus measures 11.0 x 4.6 x 4.0 cm. Endometrium is 7 mm in thickness. Right ovary measures 2.9 x 2.4 x 1.3 cm. Left ovary is not visualized. No free fluid identified in the pelvis. IMPRESSION: Normal sonographic appearance of the uterus and right ovary. Left ovary is not visualized. Electronically signed by: Batool Davalos MD (07/15/2020 4:16 PM) CINDA
[2020-07-15 16:21] LABS: BASO % 0 % (0-3); EOS # 0.1 x10^3/uL (0.0-0.7); EOS % 2 % (0-3); HEMATOCRIT 32.6 % (36.0-47.0); HEMOGLOBIN 10.3 g/dL (12.0-15.5); LYMPH # 2.9 x10^3/uL (1.0-4.8); LYMPH % 42 % (24-48); MEAN CORPUSCULAR HEMOGLOBIN 25 pg (25-35); MEAN CORPUSCULAR HGB CONC 32 g/dL (31-37); MEAN CORPUSCULAR VOLUME 78 fL (79-100); MONO # 0.4 x10^3/uL (0.0-1.1); MONO % 6 % (0-9); NEUT # 3.5 x10^3/uL (1.8-7.7); NEUT % 50 % (31-73); PLATELET COUNT 284 x10^3/uL (140-400); RED BLOOD COUNT 4.16 x10^6/uL (3.50-5.40); RED CELL DISTRIBUTION WIDTH 14.6 % (11.5-14.5)
[2020-07-15 16:21] LABS: BACTERIA,URINE FEW /HPF (0-FEW)
[2020-07-15 16:22] LABS: RBC,URINE 0 /HPF (0-2); WBC,URINE 0 /HPF (0-4)
[2020-07-15] MEDS ORDERED: IV NORMAL SALINE 1000ML BAG 1,000 ML IV ONE (16:30)
[2020-07-15] MEDS ORDERED: IOHEXOL 300 MG/ML 100ML VIAL. IV ONE (17:00)
[2020-07-15 17:03] LABS: CALCIUM 9.3 mg/dL (8.5-10.1); CREATININE 0.7 mg/dL (0.6-1.0); GFR 118.1; POTASSIUM 3.5 mmol/L (3.5-5.1)
[2020-07-15 17:08] LABS: ALBUMIN 3.7 g/dL (3.4-5.0); ALBUMIN/GLOBULIN RATIO 0.9 (1.0-1.7); TOTAL BILIRUBIN 0.2 mg/dL (0.2-1.0)
--- NOTE | 2020-07-15 17:35 | RAD ---
Exam: CT of pelvis with contrast INDICATION: Pelvic pain TECHNIQUE: Sequential axial images through the pelvis obtained following the administration of 75 mL of Omni 300 IV contrast. Sagittal and coronal reformatted images were reconstructed from the axial da ta and reviewed. Comparisons: Pelvis same day FINDINGS: Visualized portions of the kidneys are unremarkable. No renal or ureteral calculi identified within t he [id number]. Bladder is partially distended and appears thin-walled. Uterus is not enlarged. No abnormal adnexal m ass. Visualized portions of the large and small bowel are unremarkable. Appendix is normal. No free intra- abdominal air or fluid. No obstruction. Pelvic vasculature is patent. No enlarged pelvic lymph nodes identified. No suspicious osseous lesions or acute fractures. IMPRESSION: No acute process identified in the pelvis Exposure: One or more of the following in the visualized dose reduction techniques were utilized for this examination: 1. Automated exposure control 2. Adjustment of the MA and/or KV according to patient size 3. Use of iterative of reconstructive technique Electronically signed by: Batool Davalos MD (07/15/2020 5:32 PM) [facility]
[2020-07-15] MEDS ORDERED: AZITHROMYCIN 250 MG TABLET. PO ONE (18:30)
[2020-07-15] MEDS ORDERED: cefTRIAXone IM 500 MG VIAL. IM ONE (18:30)
[2020-07-15 18:42] VITALS: BP 107/53
[2020-07-16 19:15] LABS: GC PROBE Negative (Negative)
== END 2020-07-15 19:36 | disposition home or self-care (01) ==
LOC: ER 14:24
DX: N93.8 Other specified abnormal uterine and vaginal bleeding (principal); R10.2 Pelvic and perineal pain; N94.10 Unspecified dyspareunia; R10.31 Right lower quadrant pain; R10.32 Left lower quadrant pain; F17.200 Nicotine dependence, unspecified, uncomplicated; Z90.49 Acquired absence of other specified parts of digestive tract; Z90.89 Acquired absence of other organs
CPT/HCPCS: 36415; 72193; 76830; 76856; 80053; 81001; 81025; 83690; 85025; 87491; 87591; 96361; 96372; 96374; 99285; J0696; J1885; J7030; Q0111; Q9967

== ENCOUNTER 2021-02-28 01:04 | Observation (INO) | payer OTHER ==
[~2021-02-28] VITALS: Ht 172.7 cm; Wt 100.0 kg
[2021-02-28 01:54] LABS: BASO # 0.1 x10^3/uL (0.0-0.2); BASO % 1 % (0-3); EOS # 0.1 x10^3/uL (0.0-0.7); EOS % 1 % (0-3); HEMOGLOBIN 9.9 g/dL (12.0-15.5); LYMPH % 30 % (24-48); MEAN CORPUSCULAR HEMOGLOBIN 25 pg (25-35); MEAN CORPUSCULAR HGB CONC 32 g/dL (31-37); MEAN CORPUSCULAR VOLUME 77 fL (79-100); MONO # 0.5 x10^3/uL (0.0-1.1); MONO % 5 % (0-9); NEUT # 6.3 x10^3/uL (1.8-7.7); NEUT % 63 % (31-73); PLATELET COUNT 259 x10^3/uL (140-400); RED BLOOD COUNT 4.02 x10^6/uL (3.50-5.40); RED CELL DISTRIBUTION WIDTH 15.9 % (11.5-14.5); WHITE BLOOD COUNT 9.9 x10^3/uL (4.0-11.0)
[2021-02-28 02:08] LABS: CALCIUM 8.7 mg/dL (8.5-10.1); CREATININE 0.7 mg/dL (0.6-1.0); GFR 117.3; POTASSIUM 3.6 mmol/L (3.5-5.1)
[2021-02-28 02:11] LABS: ALBUMIN 3.5 g/dL (3.4-5.0); ALBUMIN/GLOBULIN RATIO 0.9 (1.0-1.7); TOTAL BILIRUBIN 0.3 mg/dL (0.2-1.0); TOTAL PROTEIN 7.3 g/dL (6.4-8.2)
--- NOTE | 2021-02-28 03:10 | PHYS DOC ---
Past Medical History Past Medical History: No Pertinent History Past Surgical History: Cholecystectomy, Tonsillectomy Smoking Status: Current Every Day Smoker Alcohol Use: Rarely Drug Use: None General Adult EDM: Chief Complaint: ABDOMINAL PAIN HPI: HPI: Patient is a 31 year old male presents with a chief complaint of right-sided abdominal pain. Patient states abdominal pain started suddenly approximately 010 0 hours. Patient states she was having intercourse when the pain started. Patient states she has nausea but has not vomited. On exam patient's pain is in her right lower quadrant. She denies any vaginal bleeding. Review of Systems: Review of Systems: Constitutional: Denies fever or chills. [] Eyes: Denies change in visual acuity. [] HENT: Denies nasal congestion or sore throat. [] Respiratory: Denies cough or shortness of breath. [] Cardiovascular: Denies chest pain or edema. [] GI: positve abdominal pain, positive nausea, no vomiting, bloody stools or diarrhea. [] : Denies dysuria. [] Musculoskeletal: Denies back pain or joint pain. [] Integument: Denies rash. [] Neurologic: Denies headache, focal weakness or sensory changes. [] Endocrine: Denies polyuria or polydipsia. [] Lymphatic: Denies swollen glands. [] Psychiatric: Denies depression or anxiety. [] Heart Score: C/O Chest Pain: N/A Risk Factors: Risk Factors: DM, Current or recent (<one month) smoker, HTN, HLP, family history of CAD, obesity. Risk Scores: Score 0 - 3: 2.5% MACE over next 6 weeks - Discharge Home Score 4 - 6: 20.3% MACE over next 6 weeks - Admit for Clinical Observation Score 7 - 10: 72.7% MACE over next 6 weeks - Early Invasive Strategies Current Medications: Current Medications Medications (Trade) Dose Ordered Sig/Abi Start Time Stop Time Status Last Admin Dose Admin Ketorolac Tromethamine (Toradol 30mg Vial) 30 mg 1X ONCE 02/28/21 03:30 02/28/21 03:31 Ondansetron HCl (Zofran) 4 mg 1X ONCE 02/28/21 03:30 02/28/21 03:31 Sodium Chloride 1,000 ml @ 1,000 mls/hr 1X ONCE 02/28/21 03:30 02/28/21 04:29 Allergies: Allergies: Allergies Coded Allergies Type Severity Reaction Last Updated Verified No Known Drug Allergies 07/15/20 No Physical Exam: PE: Constitutional: Well developed, well nourished, no acute distress, non-toxic appearance. [] HENT: Normocephalic, atraumatic, bilateral external ears normal, oropharynx moist, no oral exudates, nose normal. [] Eyes: PERRLA, EOMI, conjunctiva normal, no discharge. [] Neck: Normal range of motion, no tenderness, supple, no stridor. [] Cardiovascular:Heart rate regular rhythm, no murmur [] Lungs & Thorax: Bilateral breath sounds clear to auscultation [] Abdomen: tender to palpation right lower and left lower quadrant R>>L Skin: Warm, dry, no erythema, no rash. [] Back: No tenderness, no CVA tenderness. [] Extremities: No tenderness, no cyanosis, no clubbing, ROM intact, no edema. [] Neurologic: Alert and oriented X 3, normal motor function, normal sensory function, no focal deficits noted. [] Psychologic: Affect normal, judgement normal, mood normal. [] Current Patient Data: Labs: Laboratory Tests Test 02/28/21 01:45 White Blood Count 9.9 x10^3/uL (4.0-11.0) Red Blood Count 4.02 x10^6/uL (3.50-5.40) Hemoglobin 9.9 g/dL (12.0-15.5) L Hematocrit 31.0 % (36.0-47.0) L Mean Corpuscular Volume 77 fL (79-100) L Mean Corpuscular Hemoglobin 25 pg (25-35) Mean Corpuscular Hemoglobin Concent 32 g/dL (31-37) Red Cell Distribution Width 15.9 % (11.5-14.5) H Platelet Count 259 x10^3/uL (140-400) Neutrophils (%) (Auto) 63 % (31-73) Lymphocytes (%) (Auto) 30 % (24-48) Monocytes (%) (Auto) 5 % (0-9) Eosinophils (%) (Auto) 1 % (0-3) Basophils (%) (Auto) 1 % (0-3) Neutrophils # (Auto) 6.3 x10^3/uL (1.8-7.7) Lymphocytes # (Auto) 3.0 x10^3/uL (1.0-4.8) Monocytes # (Auto) 0.5 x10^3/uL (0.0-1.1) Eosinophils # (Auto) 0.1 x10^3/uL (0.0-0.7) Basophils # (Auto) 0.1 x10^3/uL (0.0-0.2) Sodium Level 141 mmol/L (136-145) Potassium Level 3.6 mmol/L (3.5-5.1) Chloride Level 103 mmol/L (98-107) Carbon Dioxide Level 28 mmol/L (21-32) Anion Gap 10 (6-14) Blood Urea Nitrogen 10 mg/dL (7-20) Creatinine 0.7 mg/dL (0.6-1.0) Estimated GFR (Cockcroft-Gault) 117.3 BUN/Creatinine Ratio 14 (6-20) Glucose Level 125 mg/dL (70-99) H Calcium Level 8.7 mg/dL (8.5-10.1) Total Bilirubin 0.3 mg/dL (0.2-1.0) Aspartate Amino Transferase (AST) 23 U/L (15-37) Alanine Aminotransferase (ALT) 29 U/L (14-59) Alkaline Phosphatase 79 U/L (46-116) Total Protein 7.3 g/dL (6.4-8.2) Albumin 3.5 g/dL (3.4-5.0) Albumin/Globulin Ratio 0.9 (1.0-1.7) L Lipase 83 U/L (73-393) Laboratory Tests 02/28/21 01:45 Laboratory Tests 02/28/21 01:45 Vital Signs: Vital Signs Date Time Temp Pulse Resp B/P (MAP) Pulse Ox O2 Delivery O2 Flow Rate FiO2 02/28/21 01:10 98.2 63 19 120/62 (81) 99 Room Air 98.2 EKG: EKG: [] Radiology/Procedures: Radiology/Procedures: [] Course & Med Decision Making: Course & Med Decision Making Pertinent Labs and Imaging studies reviewed. (See chart for details) [Discussed ct imaging with radiologist. Patient to be admitted to ob-lna. Discussed patient with Dr KeithMague Huynh Disclaimer: Amina Disclaimer: This electronic medical record was generated, in whole or in part, using a voice recognition dictation system. Departure Departure Impression: Primary Impression: Abdominal pain Additional Impressions: Ruptured ovarian cyst Hemorrhagic cyst Disposition: ADMITTED INPATIENT Condition: STABLE Referrals: NO PCP (PCP) FLACO JESUS DO Feb 28, 2021 03:10
[2021-02-28] MEDS ORDERED: CONTRAST GIVEN. MC PRN (03:30)
[2021-02-28] MEDS ORDERED: IOHEXOL 300 MG/ML 100ML VIAL. IV ONE (03:30)
[2021-02-28] MEDS ORDERED: ONDANSETRON PF 4 MG/2 ML VIAL. IVP ONE (03:30)
[2021-02-28] MEDS ORDERED: KETOROLAC 30 MG/ML VIAL. IVP ONE (03:30)
[2021-02-28] MEDS ORDERED: IV NORMAL SALINE 1000ML BAG 1,000 ML IV ONE (03:30)
[2021-02-28 03:33] LABS: BILIRUBIN,URINE NEGATIVE (NEG); CLARITY,URINE CLEAR; COLOR,URINE YELLOW; NITRITE,URINE NEGATIVE (NEG); PH,URINE 6.5 (<5.0-8.0); PROTEIN,URINE NEGATIVE (NEG-TRACE)
[2021-02-28 03:38] LABS: U PREG PATIENT NEGATIVE (NEG)
[2021-02-28 03:44] LABS: BACTERIA,URINE 0 /HPF (0-FEW); RBC,URINE OCC /HPF (0-2); WBC,URINE OCC /HPF (0-4)
--- NOTE | 2021-02-28 05:10 | RAD ---
EXAM: CT ABDOMEN/PELVIS WITH CONTRAST. HISTORY: Abdominal pain. TECHNIQUE: Computed tomography of the abdomen and pelvis was performed after the intravenous administ ration of iodinated contrast. One or more of the following individualized dose reduction techniques w ere utilized for this examination: 1. Automated exposure control. 2. Adjustment of the mA and/or kV according to patient size. 3. Use of iterative reconstruction technique. COMPARISON: 07/15/2020. FINDINGS: Lung windows through the visualized portions of the bases reveal no abnormality. Bone windo ws reveal no suspicious lesions. A left ovarian cyst or dominant follicle measures 5.0 x 4.2 cm. Radiodense pelvic fluid is consistent with some surrounding hemorrhage. No active extravasation is seen. The appendix is not inflamed. There is no small bowel obstruction. The gallbladder is surgically abse nt. The liver, spleen, pancreas, adrenal glands and kidneys are unremarkable. There are no pathologic ally enlarged lymph nodes. IMPRESSION: 1. 5.0 cm cystic lesion in the left ovary consistent with a hemorrhagic cyst. There is a small amount of hemoperitoneum. Ongoing management is recommended. These findings were called to Dr. Mendes by Ron Nair on 02/28/2021 at 5:01 AM. Electronically signed by: Layo Nair MD (02/28/2021 5:08 AM) [facility]
[2021-02-28] MEDS ORDERED: ONDANSETRON PF 4 MG/2 ML VIAL. IVP PRN (06:15)
[2021-02-28] MEDS: MORPHINE SULFATE 4 MG/ML INJ. IVP PRN ×2 (08:11→11:11)
--- NOTE | 2021-02-28 08:40 | RAD ---
Exam Date: 02/28/2021 7:07 AM US PELVIS W/TV Indication: Reason: pelvic pain / Spl. Instructions: / History: . TECHNIQUE: Multiple longitudinal and transverse sonographic images were obtained of the pelvis using a transabdominal and transvaginal approach. Color Doppler imaging was performed on the ovaries bila terally. Transvaginal imaging was included to better evaluate the uterus, ovaries, and adnexa. COMPARISON: Pelvic ultrasound from July 15, 2020 FINDINGS: The uterus measures 9.3 x 5.2 x 4.5 cm. The endometrial complex measures 7 mm in thickness. Right ovary is not identified due to overlying bowel gas. The left ovary measures 5.6 x 5.7 x 4.8 c m. There is a 5.0 x 4.8 x 4.7 cm complex cyst in the left ovary. Color Doppler imaging otherwise dem onstrates normal vascularity in the left ovary. Small free fluid is seen in the pelvis. IMPRESSION: Complex left ovarian cyst for which follow-up sonogram in 2-3 menstrual cycles is recommended. Small free fluid in the pelvis is nonspecific, possibly physiologic. Electronically signed by: Gareth Rocha MD (02/28/2021 8:38 AM) [facility]
[2021-02-28 09:00] VITALS: BP 126/60
[2021-02-28 09:30] VITALS: BP 116/59
[2021-02-28 10:00] VITALS: BP 118/56
[2021-02-28 10:30] VITALS: BP 114/52
--- NOTE | 2021-02-28 12:45 | PDOC1 ---
[employer] H&P Date of Admission: Date of Admission: Feb 28, 2021 at 06:23 History of Present Illness: The pt is a 31y who presented to the ER with right sided abd pain. During intercourse early this am the pt had a sharp intense pain. She also felt hot and dizzy at the time. The pt presented to the ER. In the ER they performed a CT to w/u her RLQ pain. The CT revealed the followin.0 cm cystic lesion in the left ovary consistent with a hemorrhagic cyst. There is a small amount of hemoperitoneum. Ongoing management is recommended. A u/s was then ordered and revealed the following: Complex left ovarian cyst for which follow-up sonogram in 2-3 menstrual cycles is recommended. Small free fluid in the pelvis is nonspecific, possibly physiologic. Explained that cyst were common. Explained that based on the appearance on imaging that this was a hemorrhagic cyst. Potentially the cyst could have ruptured (with or without) intercourse. Explained that the fluid release by the cyst (blood) was irritating to the pelvis and could be the source of her pain. If that is the case it is likely that this pain should be self-limiting. PMH: Denies PSH: Bailee, tonsil Meds: None All: Cats OBHx: 2 x [employer]: LMP beginning of Jan Nexplanon placed 5yrs ago 9yo / regular SH: 1/3 PPD, no EtOH FH: noncontributory Past Medical History: Cardiovascular: No pertinent hx Pulmonary: No pertinent hx GI: No pertinent hx Heme/Onc: No pertinent hx Hepatobiliary: No pertinent hx Psych: No pertinent hx Rheumatologic: No pertinent hx Infectious disease: No pertinent hx Renal/: No pertinent hx Endocrine: No pertinent hx Past Surgical History: No pertinent history Social History: ALCOHOL: heavy Drugs: None Medications: Meds: Current Medications Medications (Trade) Dose Ordered Sig/Abi Route PRN Reason Start Time Stop Time Status Last Admin Dose Admin Ketorolac Tromethamine (Toradol 30mg Vial) 30 mg 1X ONCE IVP 02/28/21 03:30 02/28/21 03:31 DC 02/28/21 03:17 Ondansetron HCl (Zofran) 4 mg 1X ONCE IVP 02/28/21 03:30 02/28/21 03:31 DC 02/28/21 03:16 Sodium Chloride 1,000 ml @ 1,000 mls/hr 1X ONCE IV 02/28/21 03:30 02/28/21 04:29 DC 02/28/21 03:15 Iohexol (Omnipaque 300 Mg/ml) 75 ml 1X ONCE IV 02/28/21 03:30 02/28/21 03:31 DC 02/28/21 03:58 Morphine Sulfate (Morphine Sulfate) 4 mg PRN Q2HR PRN IVP SEVERE PAIN 7-10 02/28/21 06:15 03/01/21 06:14 02/28/21 11:11 Allergies: Coded Allergies: No Known Drug Allergies (Unverified , 07/15/20) Physical Exam: Vital Signs: Vital Signs Date Time Temp Pulse Resp B/P (MAP) Pulse Ox O2 Delivery O2 Flow Rate FiO2 02/28/21 11:11 18 Room Air 02/28/21 10:30 59 114/52 (72) 99 02/28/21 09:00 97.8 97.8 PE: GENERAL: No apparent distress. Alert and oriented. HEENT: Head normocephalic, atraumatic. NECK: Supple LUNGS: Clear to auscultation. HEART: RRR, S1, S2 present, pulses intact ABDOMEN: Soft, positive bowel sounds. EXTREMITIES: No cyanosis or edema. NEUROLOGIC: Normal speech, normal tone PSYCHIATRIC: Normal affect, normal mood. SKIN: No ulceration. Labs: Laboratory Tests Test 02/28/21 01:05 02/28/21 01:45 Urine Collection Type Unknown Urine Color Yellow Urine Clarity Clear Urine pH 6.5 (<5.0-8.0) Urine Specific [place] 1.020 (1.000-1.030) Urine Protein Negative mg/dL (NEG-TRACE) Urine Glucose (UA) Negative mg/dL (NEG) Urine Ketones (Stick) Negative mg/dL (NEG) Urine Blood Negative (NEG) Urine Nitrite Negative (NEG) Urine Bilirubin Negative (NEG) Urine Urobilinogen Dipstick 1.0 mg/dL (0.2 mg/dL) Urine Leukocyte Esterase Negative (NEG) Urine RBC Occ /HPF (0-2) Urine WBC Occ /HPF (0-4) Urine Squamous Epithelial Cells Few /LPF Urine Bacteria 0 /HPF (0-FEW) Urine Mucus Slight /LPF Urine Test Negative (NEG) White Blood Count 9.9 x10^3/uL (4.0-11.0) Red Blood Count 4.02 x10^6/uL (3.50-5.40) Hemoglobin 9.9 g/dL (12.0-15.5) L Hematocrit 31.0 % (36.0-47.0) L Mean Corpuscular Volume 77 fL (79-100) L Mean Corpuscular Hemoglobin 25 pg (25-35) Mean Corpuscular Hemoglobin Concent 32 g/dL (31-37) Red Cell Distribution Width 15.9 % (11.5-14.5) H Platelet Count 259 x10^3/uL (140-400) Neutrophils (%) (Auto) 63 % (31-73) Lymphocytes (%) (Auto) 30 % (24-48) Monocytes (%) (Auto) 5 % (0-9) Eosinophils (%) (Auto) 1 % (0-3) Basophils (%) (Auto) 1 % (0-3) Neutrophils # (Auto) 6.3 x10^3/uL (1.8-7.7) Lymphocytes # (Auto) 3.0 x10^3/uL (1.0-4.8) Monocytes # (Auto) 0.5 x10^3/uL (0.0-1.1) Eosinophils # (Auto) 0.1 x10^3/uL (0.0-0.7) Basophils # (Auto) 0.1 x10^3/uL (0.0-0.2) Sodium Level 141 mmol/L (136-145) Potassium Level 3.6 mmol/L (3.5-5.1) Chloride Level 103 mmol/L (98-107) Carbon Dioxide Level 28 mmol/L (21-32) Anion Gap 10 (6-14) Blood Urea Nitrogen 10 mg/dL (7-20) Creatinine 0.7 mg/dL (0.6-1.0) Estimated GFR (Cockcroft-Gault) 117.3 BUN/Creatinine Ratio 14 (6-20) Glucose Level 125 mg/dL (70-99) H Calcium Level 8.7 mg/dL (8.5-10.1) Total Bilirubin 0.3 mg/dL (0.2-1.0) Aspartate Amino Transferase (AST) 23 U/L (15-37) Alanine Aminotransferase (ALT) 29 U/L (14-59) Alkaline Phosphatase 79 U/L (46-116) Total Protein 7.3 g/dL (6.4-8.2) Albumin 3.5 g/dL (3.4-5.0) Albumin/Globulin Ratio 0.9 (1.0-1.7) L Lipase 83 U/L (73-393) Laboratory Tests 02/28/21 01:45 Laboratory Tests 02/28/21 01:45 Laboratory Tests 02/28/21 01:45 Assessment & Plan: A/P 31y with RLQ pain 1.) RLQ pain could potentially be related to the small amount of free fluid in her pelvis from a hemorrhagic cyst. If that is the case should be self- limiting. Will tx pain symptomatically 2.) Left hemorrhagic cyst 5.0 cm in size 3.) Contraception Nexplanon in place, , was wondering where she could get it removed 4.) Tob use 5.) Will observe over the day ANNABEL SCHWARZ MD Feb 28, 2021 12:45
[2021-02-28] MEDS ORDERED: IBUPROFEN 400 MG TABLET. PO ONE (14:45)
[2021-02-28] MEDS ORDERED: oxyCODONE/APAP 5/325 1 TAB TABLET PO ONE (14:45)
[2021-02-28] MEDS ORDERED: DOCUSATE SODIUM 100 MG CAPSULE. PO PRN (14:45)
--- NOTE | 2021-02-28 15:00 | NUR ---
Call/page placed to Dr. Keith, call/page returned and discussed pt's request to be d/c'd home today. Verbal order recieved pt may d/c home today and follow up in office. Pt may take Ibuprofen at home for pain.
[2021-02-28 15:15] VITALS: BP 117/59
--- NOTE | 2021-03-01 11:12 | DS ---
DATE OF DISCHARGE: 02/28/2021 ADMISSION DIAGNOSES: 1. Right lower quadrant pain. 2. Left hemorrhagic cyst with small amount of fluid in the pelvic cavity. 3. Nexplanon. 4. Tobacco use. DISCHARGE DIAGNOSES: 1. Right lower quadrant pain. 2. Left hemorrhagic cyst with small amount of fluid in the pelvic cavity. 3. Nexplanon. 4. Tobacco use. PROCEDURES: None. BRIEF HOSPITAL COURSE: The patient is a 31-year-old 2, para 2-0-0-2 who presented to the ER with right-sided pain. The pain first occurred when she was having intercourse early that morning. The pain was sharp and intense. She also felt hot and dizzy at that time. In the ER, a CT was performed revealing a 5 cm cystic lesion on her left ovary consistent with a hemorrhagic cyst. There was also a small amount of hemoperitoneum noted. Following the CT, the patient had an ultrasound, which revealed similar findings with a complex left cyst, a small amount of fluid in the pelvis. On consultation, it was explained to the patient that cysts were very common in her age group and that often hemorrhagic cysts were self-limiting. The patient's pain improved throughout the day and subsequently was discharged later that evening. DISCHARGE INSTRUCTIONS: The patient was told not to lift anything greater than 20 pounds, have pelvic rest for 6 weeks. CALL IF: She had fever, chills, nausea, vomiting, worsening abdominal pain, or any additional questions or concerns. FOLLOWUP APPOINTMENT: The patient was to follow up in the office for this pain and for removal of her Nexplanon. DISCHARGE MEDICATIONS: The patient was told to get [id number] anti-inflammatories for her pain control. АННА DR: Kyle TID: [id number]
== END 2021-02-28 15:55 | disposition home or self-care (01) ==
LOC: ER 01:04 → ED HOLD 06:23 → 3 NORTH 07:50
PROVIDERS: ADMIT Obstetrics & Gynecology; ATTEND Obstetrics & Gynecology
DX: N83.202 Unspecified ovarian cyst, left side (principal); F17.200 Nicotine dependence, unspecified, uncomplicated; R42 Dizziness and giddiness; Z98.890 Other specified postprocedural states; Z90.49 Acquired absence of other specified parts of digestive tract
CPT/HCPCS: 36415; 74177; 76830; 76856; 80053; 81001; 81025; 83690; 85025; 96361; 96374; 96375; 96376; 99285; G0378; J1885; J2270; J2405; J7030; Q9967; G0379